=== PATIENT | female | born 1980 | race Caucasian/White ===

== ENCOUNTER 2018-04-02 12:57 | Outpatient (CLI) | payer OTHER | END 2018-04-02 13:41 | disposition home or self-care (01) | LOC: NST 12:57 | DX: O30.003 Twin pregnancy, unspecified number of placenta and unspecified number of amniotic sacs, third trimester (principal); Z34.83 Encounter for supervision of other normal pregnancy, third trimester ==

== ENCOUNTER 2018-05-08 10:57 | Outpatient (CLI) | payer OTHER | END 2018-05-08 12:59 | disposition home or self-care (01) | LOC: NST 10:57 | DX: O30.003 Twin pregnancy, unspecified number of placenta and unspecified number of amniotic sacs, third trimester (principal); Z34.83 Encounter for supervision of other normal pregnancy, third trimester ==